=== PATIENT | female | born 1935 | race Caucasian/White ===

== ENCOUNTER → 2017-01-10 | Outpatient (CLI) | payer MEDICARE ==
[~2017-01-10] MED LIST: ALPR0.254 PO; DONE10TA56 PO; LOSA25TA5 PO
== END | disposition home or self-care (01) ==
LOC: CFH 13:46
PROVIDERS: ATTEND Family Medicine
DX: Z13.820 Encounter for screening for osteoporosis (principal); N95.8 Other specified menopausal and perimenopausal disorders; M81.0 Age-related osteoporosis without current pathological fracture
CPT/HCPCS: 77080

== ENCOUNTER 2017-01-11 13:25 | Emergency (ER) | payer MEDICARE ==
[~2017-01-11] VITALS: Ht 160 cm; Wt 47.8 kg
[~2017-01-11 13:25] MED LIST changes: -ALPR0.254 PO; -LOSA25TA5 PO
[2017-01-11 14:03] LABS: PATH.CAST-FLAG NOT PRESENT; SPERM-FLAG NOT PRESENT; SRC-FLAG NOT PRESENT; XTAL-FLAG NOT PRESENT; YLC-FLAG NOT PRESENT
[2017-01-11] MEDS ORDERED: LOSA25TA5 PO (14:09)
[2017-01-11] MEDS ORDERED: ALPR0.254 PO (14:09)
[2017-01-11] MEDS ORDERED: MAGNESIUM CITRATE 300ML ORAL SOL PO ONE (15:00)
[2017-01-11] MEDS ORDERED: SODIUM CHLORIDE FLUSH 10ML SYR IVF ONE (15:00)
[2017-01-11 15:18] LABS: HEMATOCRIT 41.4 % (34.6-47.8); HEMOGLOBIN 13.9 g/dL (11.7-16.4); WHITE BLOOD COUNT 5.3 x10^3/uL (3.4-10)
[2017-01-11] MEDS ORDERED: MAGNESIUM CITRATE 300ML ORAL SOL ONE (15:26)
[2017-01-11 15:29] LABS: BLOOD UREA NITROGEN 19 mg/dL (7-18)
[2017-01-11] MEDS ORDERED: OMNIPAQUE 350 MG/ML, 100ML BOTTLE ONE (16:05)
[2017-01-11] MEDS ORDERED: ONDANSETRON 2MG/ML, 2ML ONE (17:29)
[2017-01-11] MEDS ORDERED: ONDANSETRON 2MG/ML, 2ML IVPush ONE (18:00)
[2017-01-11 18:29] VITALS: BP 164/84
== END 2017-01-11 18:31 | disposition home or self-care (01) ==
LOC: MERGE 17:17 → ED 17:17
DX: I71.4 Abdominal aortic aneurysm, without rupture (principal); K59.00 Constipation, unspecified; I10 Essential (primary) hypertension
CPT/HCPCS: 36415; 74020; 74175; 80048; 81001; 82040; 85025; 85610; 85730; 87077; 87086; 87186; 96374; 99285; J2405; Q9967

== ENCOUNTER → 2017-09-26 | Outpatient (CLI) | payer MEDICARE ==
[~2017-09-26] MED LIST changes: +ALPR0.254 PO; +LOSA25TA5 PO
== END | disposition home or self-care (01) ==
LOC: CFH 10:31
PROVIDERS: ATTEND Internal Medicine Cardiovascular Disease
DX: I08.3 Combined rheumatic disorders of mitral, aortic and tricuspid valves (principal); I10 Essential (primary) hypertension; Z87.891 Personal history of nicotine dependence
CPT/HCPCS: 93306